=== PATIENT | female | born 1980 | race Caucasian/White ===

== ENCOUNTER 2017-12-31 09:13 | Observation (INO) ==
[2017-12-31] MEDS ORDERED: 0.9 % Sodium Chloride 1,000 ML IVC ONE ×2 (09:20→13:29)
[2017-12-31] MEDS ORDERED: *HR* LORazepam 2 MG/ML VIAL IVP ONE ×2 (09:20→09:23)
[2017-12-31] MEDS ORDERED: *HR* LORazepam 2 MG/ML VIAL ONE (09:50)
[2017-12-31] MEDS ORDERED: levETIRAcetam 1,000 MG in 0.9 % Sodium Chloride 100 ML IVPB ONE (09:54)
--- NOTE | 2017-12-31 10:22 | Emergency Department Note ---
Disposition Clinical Impression: Tonic clonic seizures Disposition: Admitted As Inpatient Condition: Fair Time of Disposition: 14:26 Seizure HPI - General Chief Complaint: ED Seizure Stated Complaint: poss seizure Time Seen by Provider: 12/31/17 09:20 Source: patient, EMS Limitations: no limitations Nursing Notes Reviewed: Yes Vital Signs Reviewed: Yes - History of Present Illness HPI Narrative: 29-year-old diabetic female presents after possible seizure, patient states that she was shaking this morning she was smoking a cigarette, then she started to shake uncontrollably, her told the paramedics that she was unresponsive for a minute or so no history of seizure. She did have urinary incontinence, did not bite her tongue. Per the paramedics she was shaking for about a minute, and she was little bit postictal and confused after the event. She denies headache or injury. Denies chest pain or abdominal pain. Pt Subjective Complaint: seizure Description of Episode: loss of consciousness, tonic-clonic movement Witnessed: yes - by bystander Associated trauma secondary to event: No Seizure History: none Place: work Possible Precipitating Event: none Associated symptoms: Denies: denies other symptoms, chest pain, confusion, cough , diaphoresis Pain Severity: mild, moderate Pain Scale: 2 Treatments prior to arrival: none - Related Data Home Medications Medication Instructions Recorded Confirmed Quetiapine Fumarate [SEROquel] 600 mg PO HS 04/28/16 12/31/17 TraZODone [TraZODone] 50 mg PO HS 04/28/16 12/31/17 BuPROPion XL (24 HR) [Wellbutrin 150 mg PO DAILY 12/31/17 12/31/17 XL] Ferrous Sulfate [Iron] 325 mg PO DAILY 12/31/17 12/31/17 Gabapentin [Neurontin] 600 mg PO QID 12/31/17 12/31/17 Metformin HCl [Glucophage] 1,000 mg PO BID 12/31/17 12/31/17 Sertraline [Zoloft] 200 mg PO DAILY 12/31/17 12/31/17 Allergies Allergy/AdvReac Type Severity Reaction Status Date / Time Erythromycin Base Allergy Rash Verified 03/19/17 14:16 All systems ED: reviewed and negative except as stated. Review of Systems: As Per HPI Constitutional: Denies: fever, chills Eyes: Denies: eye pain ENT ED: Denies: ear pain Cardiovascular: Denies: chest pain, palpitations Respiratory: Denies: cough, dyspnea Gastrointestinal: Denies: abdominal pain Genitourinary: Denies: urgency Musculoskeletal: Denies: back pain Integumentary: Denies: rash Neurological: Reports: as per HPI, other (seizure). Denies: headache, numbness Psychiatric: Denies: anxiety Past Medical History - Past Medical History Attestation: Yes The following information was validated with the patient. Source: patient Medical history: Reports: diabetes, hepatitis Surgical history: Reports: non-contributory Psychiatric history: Reports: anxiety, bipolar, depression ICU STAFF NURSE history: Reports: non-contributory - Social History Smoking Status: Current every day smoker Smokeless Tobacco Status: No Alcohol use: Reports: none Drug use: Reports: none, IV Drug Use Physical Exam Constitutional: Obese middle-aged female with some confusion Eyes: PERRLA, sclera anicteric ENT & Mouth: MMM Neck: normal inspection, neck is supple Resp: CTA bilaterally, no resp distress CV: RRR, no m/g/r GI: normal inspection, soft, no guarding or rigidity Neuro: A&O2, CNII-XII grossly intact, DIAMOND Skin: on limited exam, skin intact with no rashes or lesions - General Limitations: no limitations General appearance: alert, anxious, lethargic Course Course Narrative: 37-year-old female with possible seizure tibia home, as she is being worked up, should of tonic-clonic activity that lasted for about 20-30 seconds, she is clenching, she had urinary incontinence, she was clenching, afterwards postictal confusion, we gave her 2 mg of IM Ativan, she is now more lucid, CBC BMP, CT head before LP, fluid rehydration, basic lab work including urinalysis and infectious workup lactate and blood cultures. Patient was loaded with Keppra 1 g, plan is for neurologic consult after lab work and imaging, and LP. - Reevaluation(s) Reevaluation #1: The patient episode of witnessed seizure activity, she was loaded with Keppra, after talking with the neurologist decision was made to perform LP spinal tap, and antibiotics were ordered prior to tap, patient started on ceftriaxone and acyclovir although this was not started until after CSF was obtained, although the first fluid had some blood in it, is mostly clear, she tolerated this well without any neurologic deficits or palpitations. CT scan was negative for white blood cell count was not elevated, her temperature remained normal, she had no evidence of bacteria and negative Gram stain on CSF, unclear etiology for seizures although she denies she is positive for methamphetamine abuse this may be the cause, and admitted to the hospitalist Dr. Saldaña. Time: 14:25 - Consultations Consultation #1: Consultation Dr. Eduardo plan is for MRI and EEG inpatient Vital Signs Temperature 99.5 F 12/31/17 09:15 Pulse Rate 119 12/31/17 09:15 Respiratory Rate 16 12/31/17 09:15 Blood Pressure 148/87 12/31/17 09:15 O2 Sat by Pulse Oximetry 97 12/31/17 09:15 Temperature 98.3 F 12/31/17 11:34 Pulse Rate 79 12/31/17 13:58 Respiratory Rate 16 12/31/17 14:57 Blood Pressure 107/64 12/31/17 14:57 O2 Sat by Pulse Oximetry 99 12/31/17 13:58 Oxygen Delivery Oxygen Delivery Nasal Cannula Procedures - Lumbar Puncture Consent Obtained: verbal consent, written consent Time Out Performed: Yes Patient Position: right lateral decubitus Skin Prep: Povidone-Iodine 1% Local Anesthetic: lidocaine 1% Amount of anesthesia used (mL): 5 Spinal Needle Gauge: 20G Interspace Used: L3-L4 Fluid Initially Obtained: clear, bloody Complications: none, traumatic tap Seizure - Differential Diagnosis Likely: febrile convulsion, focal seizure - Medical Records Medical records reviewed: Yes I reviewed the patient's medical records. - Lab Data Lab results reviewed: Yes I reviewed the patient's lab results. Result diagrams: 12/31/17 10:58 12/31/17 10:58 Lab Results 12/31/17 12/31/17 12/31/17 Range/Units 09:29 10:27 10:27 WBC (4.3-11.1) K/mcL RBC (3.82-4.97) M/mcL Hgb (11.5-15.4) g/dL Hct (35.3-44.9) % MCV (83.0-100.0) fL MCH (28.0-33.3) pg MCHC (31.6-35.5) g/dL RDW (11.5-14.5) % Plt Count (140-400) K/mcL MPV (9.4-12.4) fL Immature Gran % (0-4) % Seg Neutrophils % % Lymphocytes % % Monocytes % % Eosinophils % % Basophils % % Neutrophils # (1.6-8.9) K/mcL Lymphocytes # (0.6-4.6) K/mcL Monocytes # (0.0-1.3) K/mcL Eosinophils # (0.0-0.6) K/mcL Basophils # (0.0-0.2) K/mcL Sodium (136-145) mEq/L Potassium (3.5-5.1) mEq/L Chloride (98-107) mEq/L Carbon Dioxide (23-29) mEq/L BUN (6-20) mg/dL Creatinine (0.60-1.20) mg/dL Est GFR ( Amer) (> 60) Est GFR (Non-Af Amer) (> 60) BUN/Creatinine Ratio (6-26) Glucose (70-105) mg/dL POC Glucose 255 H (58-89) Calculated Osmolality (280-300) Lactic Acid (0.5-2.2) mmol/L Calcium (8.6-10.3) mg/dL Phosphorus (2.7-4.5) mg/dL Magnesium (1.6-2.6) mg/dL Total Bilirubin (0.3-1.0) mg/dL AST (13-39) Units/L ALT (7-52) Units/L Alkaline Phosphatase (34-104) Units/L Ammonia (16-53) mcmol/L Serum Total Protein (6.4-8.9) g/dL Albumin (3.5-5.7) g/dL Globulin (2.4-3.5) g/dL Albumin/Globulin Ratio (1.1-2.2) Urine Color Yellow (Yellow) Urine Clarity Clear (Clear) Urine pH 5.0 (5.0-8.0) pH Units Ur Specific [place] 1.021 (1.010-1.025) Urine Protein 30 H (Neg-Trace) mg/dL Urine Glucose (UA) Normal (Normal) mg/dL Urine Ketones Trace H (Negative) mg/dL Urine Blood Negative (Negative) Urine Nitrite Negative (Negative) Urine Bilirubin Negative (Negative) Urine Urobilinogen Normal (Normal) mg/dL Ur Leukocyte Esterase Negative (Negative) Urine Microscopic RBC 0-3 (0-3) per hpf Urine Microscopic WBC 0-3 (0-3) per hpf Ur Squamous Epith Cells Many H (None-Few) per lpf Urine Bacteria None Seen (None-Few) per hpf Hyaline Casts None Seen (None-Few) per lpf CSF Volume mL CSF Appearance (Clear) CSF Color (Colorless) CSF RBC (0.000 - 0.002) M/mcL CSF Tot Nucleated Cells (0-5) TNC/mcL CSF Seg Neutrophils CSF Band Neutrophils % CSF Lymphocytes % CSF Monocytes % CSF Eosinophils % CSF Basophils % CSF Other Cells % CSF Glucose (40-70) mg/dL CSF Xanth Comm (Not Observe) CSF Total Protein (15-45) mg/dL Urine Opiates Screen Negative (Dcryso=675) ng/mL Ur Barbiturates Screen Negative (Dacioc=799) ng/mL Ur Phencyclidine Scrn Negative (Cutoff=25) ng/mL Ur Amphetamines Screen Positive H (Tjvvqp=4457) ng/mL U Benzodiazepines Scrn Negative (Hpljha=508) ng/mL Urine Cocaine Screen Negative (Cutoff= 300) ng/mL U Marijuana (THC) Screen Negative (Cutoff = 50) ng/mL 12/31/17 12/31/17 12/31/17 Range/Units 10:58 10:58 10:58 WBC 7.2 (4.3-11.1) K/mcL RBC 4.62 (3.82-4.97) M/mcL Hgb 12.7 (11.5-15.4) g/dL Hct 39.1 (35.3-44.9) % MCV 84.6 (83.0-100.0) fL MCH 27.5 L (28.0-33.3) pg MCHC 32.5 (31.6-35.5) g/dL RDW 19.4 H (11.5-14.5) % Plt Count 279 (140-400) K/mcL MPV 9.1 L (9.4-12.4) fL Immature Gran % 0.4 (0-4) % Seg Neutrophils % 81.0 % Lymphocytes % 12.3 % Monocytes % 5.2 % Eosinophils % 0.7 % Basophils % 0.4 % Neutrophils # 5.8 (1.6-8.9) K/mcL Lymphocytes # 0.9 (0.6-4.6) K/mcL Monocytes # 0.4 (0.0-1.3) K/mcL Eosinophils # 0.1 (0.0-0.6) K/mcL Basophils # 0.0 (0.0-0.2) K/mcL Sodium 134 L (136-145) mEq/L Potassium 4.3 (3.5-5.1) mEq/L Chloride 107 (98-107) mEq/L Carbon Dioxide 17 L (23-29) mEq/L BUN 14 (6-20) mg/dL Creatinine 0.85 (0.60-1.20) mg/dL Est GFR ( Amer) > 60 (> 60) Est GFR (Non-Af Amer) > 60 (> 60) BUN/Creatinine Ratio 16 (6-26) Glucose 257 H (70-105) mg/dL POC Glucose (58-89) Calculated Osmolality 287 (280-300) Lactic Acid 5.8 H* (0.5-2.2) mmol/L Calcium 8.4 L (8.6-10.3) mg/dL Phosphorus 1.3 L (2.7-4.5) mg/dL Magnesium 1.9 (1.6-2.6) mg/dL Total Bilirubin 0.2 L (0.3-1.0) mg/dL AST 22 (13-39) Units/L ALT 35 (7-52) Units/L Alkaline Phosphatase 127 H (34-104) Units/L Ammonia (16-53) mcmol/L Serum Total Protein 6.8 (6.4-8.9) g/dL Albumin 4.2 (3.5-5.7) g/dL Globulin 2.6 (2.4-3.5) g/dL Albumin/Globulin Ratio 1.6 (1.1-2.2) Urine Color (Yellow) Urine Clarity (Clear) Urine pH (5.0-8.0) pH Units Ur Specific [place] (1.010-1.025) Urine Protein (Neg-Trace) mg/dL Urine Glucose (UA) (Normal) mg/dL Urine Ketones (Negative) mg/dL Urine Blood (Negative) Urine Nitrite (Negative) Urine Bilirubin (Negative) Urine Urobilinogen (Normal) mg/dL Ur Leukocyte Esterase (Negative) Urine Microscopic RBC (0-3) per hpf Urine Microscopic WBC (0-3) per hpf Ur Squamous Epith Cells (None-Few) per lpf Urine Bacteria (None-Few) per hpf Hyaline Casts (None-Few) per lpf CSF Volume mL CSF Appearance (Clear) CSF Color (Colorless) CSF RBC (0.000 - 0.002) M/mcL CSF Tot Nucleated Cells (0-5) TNC/mcL CSF Seg Neutrophils CSF Band Neutrophils % CSF Lymphocytes % CSF Monocytes % CSF Eosinophils % CSF Basophils % CSF Other Cells % CSF Glucose (40-70) mg/dL CSF Xanth Comm (Not Observe) CSF Total Protein (15-45) mg/dL Urine Opiates Screen (Dtztdd=261) ng/mL Ur Barbiturates Screen (Qcfjrt=043) ng/mL Ur Phencyclidine Scrn (Cutoff=25) ng/mL Ur Amphetamines Screen (Ktcgmi=9547) ng/mL U Benzodiazepines Scrn (Xdhhvy=901) ng/mL Urine Cocaine Screen (Cutoff= 300) ng/mL U Marijuana (THC) Screen (Cutoff = 50) ng/mL 12/31/17 12/31/17 Range/Units 10:58 12:40 WBC (4.3-11.1) K/mcL RBC (3.82-4.97) M/mcL Hgb (11.5-15.4) g/dL Hct (35.3-44.9) % MCV (83.0-100.0) fL MCH (28.0-33.3) pg MCHC (31.6-35.5) g/dL RDW (11.5-14.5) % Plt Count (140-400) K/mcL MPV (9.4-12.4) fL Immature Gran % (0-4) % Seg Neutrophils % % Lymphocytes % % Monocytes % % Eosinophils % % Basophils % % Neutrophils # (1.6-8.9) K/mcL Lymphocytes # (0.6-4.6) K/mcL Monocytes # (0.0-1.3) K/mcL Eosinophils # (0.0-0.6) K/mcL Basophils # (0.0-0.2) K/mcL Sodium (136-145) mEq/L Potassium (3.5-5.1) mEq/L Chloride (98-107) mEq/L Carbon Dioxide (23-29) mEq/L BUN (6-20) mg/dL Creatinine (0.60-1.20) mg/dL Est GFR ( Amer) (> 60) Est GFR (Non-Af Amer) (> 60) BUN/Creatinine Ratio (6-26) Glucose (70-105) mg/dL POC Glucose (58-89) Calculated Osmolality (280-300) Lactic Acid (0.5-2.2) mmol/L Calcium (8.6-10.3) mg/dL Phosphorus (2.7-4.5) mg/dL Magnesium (1.6-2.6) mg/dL Total Bilirubin (0.3-1.0) mg/dL AST (13-39) Units/L ALT (7-52) Units/L Alkaline Phosphatase (34-104) Units/L Ammonia 33 (16-53) mcmol/L Serum Total Protein (6.4-8.9) g/dL Albumin (3.5-5.7) g/dL Globulin (2.4-3.5) g/dL Albumin/Globulin Ratio (1.1-2.2) Urine Color (Yellow) Urine Clarity (Clear) Urine pH (5.0-8.0) pH Units Ur Specific [place] (1.010-1.025) Urine Protein (Neg-Trace) mg/dL Urine Glucose (UA) (Normal) mg/dL Urine Ketones (Negative) mg/dL Urine Blood (Negative) Urine Nitrite (Negative) Urine Bilirubin (Negative) Urine Urobilinogen (Normal) mg/dL Ur Leukocyte Esterase (Negative) Urine Microscopic RBC (0-3) per hpf Urine Microscopic WBC (0-3) per hpf Ur Squamous Epith Cells (None-Few) per lpf Urine Bacteria (None-Few) per hpf Hyaline Casts (None-Few) per lpf CSF Volume 4.0 mL CSF Appearance Clear (Clear) CSF Color Colorless (Colorless) CSF RBC < 0.002 (0.000 - 0.002) M/mcL CSF Tot Nucleated Cells < 3 (0-5) TNC/mcL CSF Seg Neutrophils TNP CSF Band Neutrophils % TNP CSF Lymphocytes % TNP CSF Monocytes % TNP CSF Eosinophils % TNP CSF Basophils % TNP CSF Other Cells % TNP CSF Glucose 119 H (40-70) mg/dL CSF Xanth Comm Not Observed (Not Observe) CSF Total Protein 58 H (15-45) mg/dL Urine Opiates Screen (Vybaar=528) ng/mL Ur Barbiturates Screen (Zsggll=364) ng/mL Ur Phencyclidine Scrn (Cutoff=25) ng/mL Ur Amphetamines Screen (Mgaxga=2427) ng/mL U Benzodiazepines Scrn (Tizpdg=216) ng/mL Urine Cocaine Screen (Cutoff= 300) ng/mL U Marijuana (THC) Screen (Cutoff = 50) ng/mL - Radiology Data Radiology results reviewed: Yes I reviewed the patient's radiology results. Head CT 12/31/17 09:53 IMPRESSION: 1. No acute intracranial abnormality. D/ / Wayne Owens MD / Wayne Owens MD Interpreting Provider: Wayne Owens MD - EKG Data EKG attestation: Yes I reviewed and interpreted this EKG. EKG shows normal: sinus rhythm Rate: tachycardia (1 13 bpm OK 172 QRS 92 QTC [address] segment elevations or depressions, sinus tachycardia.) Attestation Statement - Attestation Attestation: I, Jered Walters DO, examined this patient [id number] and my medical decision-making was reviewed with Dr. Michael Jones, Resident Physician. I agree with the documented findings, disposition and treatment plan as described except to the extent set forth below. Please see my progress notes for details. Patient seen and examined in conjunction with resident physician. 37-year-old female presents via EMS for seizure-like activity. Patient on presentation did not have any known history secondary to postictal presentation. Patient presented here with stable vital signs Accu-Chek was stable on transfer by EMS. No family was with her initially. Patient is concerning for unprovoked unknown seizure. Family did show a slightly related to the treatment course and said that she had a seizure about 2 years ago when it was withdrawal related issues. Patient has a history of hepatitis C,. And drugs of abuse history. Patient had detailed screening evaluation completed here today with CT of the head labs including urine drug screen and workup for altered mentation. There was concern for possible encephalopathic presentation secondary to the new onset seizure. Initially as ordered the mass and Rocephin and acyclovir for symptomatic control secondary to possibility of infectious etiology. Patient does not have any meningeal symptoms her head is atraumatic she has no signs of oral lesion or cuts to her mouth after the seizure activity. Lungs are clear heart is regular abdomen soft. She did lose control of her bladder during the seizure activity. At this point the lumbar puncture will be held until CT imaging is resulted in consultation is had with the on- call neurologist. He does not Will be given. A single episode of seizure-like activity reported o'clock chronic presentation did occur here in the emergency room. Disposition pending the detailed workup and treatment course. Antibiotics to be provided in conjunction with lumbar puncture if needed. See detailed documentation of the physical exam, medical intervention, medical decision-making and disposition and the resident physician's note. 1100 Patient is still postictal at this time but is getting better. CT that is unremarkable. Labs are negative for acute infectious etiology but she is positive for amphetamines in her urine. Symptoms appear to be most consistent with alcohol-related issue. Patient does not have a fever. White count as well as workup had been unremarkable. Antibiotics will be held at this time neurology consult to be placed at this point patient will most likely need admission for further workup and evaluation. Lumbar puncture was completed without any complication. CSF was reviewed and evaluated does not show any acute signs of infection. Gram stain is negative. Patient will be admitted for definitive management.
[2017-12-31 10:42] LABS: Bilirubin,Urine Negative (Negative); Blood,Urine Negative (Negative); Clarity,Urine Clear (Clear); Color,Urine Yellow (Yellow); Glucose,Urine (UA) Normal (Normal); Ketones,Urine Trace mg/dL (Negative); Leukocyte Esterase,Urine Negative (Negative); Nitrite,Urine Negative (Negative); Protein,Urine 30 mg/dL (Neg-Trace); Specific Gravity,Urine 1.021 (1.010-1.025); Urobilinogen,Urine Normal (Normal)
[2017-12-31 10:43] LABS: Bacteria,Urine None Seen per hpf (None-Few); Hyaline Casts,Urine None Seen per lpf (None-Few); RBC,Urine 0-3 per hpf (0-3); Squamous Epithelial Cell,Urine Many per lpf (None-Few); WBC,Urine 0-3 per hpf (0-3)
[2017-12-31 10:50] LABS: Amphetamine Screen,Urine Positive ng/mL (Cutoff=1000); Barbiturate Screen,Urine Negative ng/mL (Cutoff=200); Benzodiazepines Screen,Urine Negative ng/mL (Cutoff=200); Cannabinoid Screen,Urine Negative ng/mL (Cutoff = 50); Cocaine Screen,Urine Negative ng/mL (Cutoff= 300); Opiate Screen,Urine Negative ng/mL (Cutoff=300); Phencyclidine Screen,Urine Negative ng/mL (Cutoff=25)
[2017-12-31] MEDS ORDERED: Vancomycin 1,000 MG in D5% in Water 250 ML IVPB ONE (10:52)
[2017-12-31] MEDS ORDERED: Acyclovir 500 MG in D5% in Water 250 ML IVPB ONE (10:53)
[2017-12-31 11:08] LABS: Basophils % 0.4 %; Eosinophils # 0.1 K/mcL (0.0-0.6); Eosinophils % 0.7 %; Hematocrit 39.1 % (35.3-44.9); Hemoglobin 12.7 g/dL (11.5-15.4); Immature Granulocytes % 0.4 % (0-4); Lymphocytes # 0.9 K/mcL (0.6-4.6); Lymphocytes % 12.3 %; Mean Corpuscular HGB Conc 32.5 g/dL (31.6-35.5); Mean Corpuscular Hemoglobin 27.5 pg (28.0-33.3); Mean Corpuscular Volume 84.6 fL (83.0-100.0); Mean Platelet Volume 9.1 fL (9.4-12.4); Monocytes # 0.4 K/mcL (0.0-1.3); Monocytes % 5.2 %; Neutrophils # 5.8 K/mcL (1.6-8.9); Platelet Count 279 K/mcL (140-400); Red Blood Count 4.62 M/mcL (3.82-4.97); Red Cell Distribution Width 19.4 % (11.5-14.5)
[2017-12-31 11:35] LABS: Alanine Aminotransferase 35 Units/L (7-52); Albumin 4.2 g/dL (3.5-5.7); Albumin/Globulin Ratio 1.6 (1.1-2.2); Alkaline Phosphatase 127 Units/L (34-104); Aspartate Amino Transferase 22 Units/L (13-39); BUN/Creatinine Ratio 16 (6-26); Bilirubin,Total 0.2 mg/dL (0.3-1.0); Blood Urea Nitrogen 14 mg/dL (6-20); Calcium 8.4 mg/dL (8.6-10.3); Carbon Dioxide 17 mEq/L (23-29); Chloride 107 mEq/L (98-107); Globulin 2.6 g/dL (2.4-3.5); Glucose 257 mg/dL (70-105); Magnesium 1.9 mg/dL (1.6-2.6); Osmolality,Calculated 287 (280-300); Phosphorous 1.3 mg/dL (2.7-4.5); Potassium 4.3 mEq/L (3.5-5.1); Sodium 134 mEq/L (136-145); Total Protein 6.8 g/dL (6.4-8.9); eGFR For African Americans > 60 (> 60); eGFR For Non-African Americans > 60 (> 60)
[2017-12-31] MEDS ORDERED: Ketorolac 15 MG/ML VIAL IVP ONE ×2 (12:27→14:04)
[2017-12-31 13:04] LABS: Red Blood Cell,CSF < 0.002 M/mcL
[2017-12-31 13:05] LABS: Appearance,CSF Clear (Clear)
[2017-12-31 13:21] LABS: Glucose,CSF 119 mg/dL (40-70); Total Protein,CSF 58 mg/dL (15-45)
[2017-12-31] MEDS ORDERED: cefTRIAXone 2,000 MG in Water for inj. (sterile) 20 ML IVP ONE (14:05)
--- NOTE | 2017-12-31 15:22 | Neurology - Consult Note ---
Date of Encounter: 12/31/17 Time of Encounter: 15:18 Assessment and Plan (1) Tonic clonic seizures Current Visit: Yes Status: Acute Witnessed GTC x2, with no known history of seizure disorder, with positive amphetamine in UDS which may be the provoking factor. Will at this time recommend anti epileptic therapy in the form Keppra 500mg bid. Will need MRI of brain without contrast. EEG can be done as an outpatient since we are going to treat her with keppra. CSF showed no signs of [employer] infection with normal WBC. Elevated protein is a nonspecific finding which may indicate presence of encephalopathy. Start keppra 500mg bid. patient is to follow up with Dr. Dupont within 2-3 weeks after discharge. Please continue medical and supportive care History of Present Illness Chief complaint: seizure HPI: Ms. Canseco is a 37 year old female with PMH significant for hepatitis C, anxiety , DM, HTNk migraine, history of opiate dependence who developed seizure like activity with urinary incontinence. No known history of seizures but according to medical records, she had been ordered an EEG during [address] Jamar Dupont however, no follow up was with Dr. Dupont was made. She denies having seizure but admits that her significant other saw some episodes at that time. She does not remember she saw Dr. Dupont in 2016. She has witnessed seizures and in ER she had another witnessed seizure with urinary incontinence but no tongue biting. She was loaded with keppra [id number]. She also had a mild fever so LP was performed. CSF showed WBC < 3, and slightly elevated protein level of 56, which is nonspecific. She has had MRI of brain in the past. Her UDS showed positive for amphetamine. she states that she messed up with her medications and she took few Adderal and also suboxone. Past Med Surg Social Fam HX - Past Medical History Medical history: diabetes, hepatitis Psychiatric history: anxiety, bipolar, depression - Past Surgical History Surgical History: non-contributory - Social History Smoking Status: Current every day smoker Smokeless Tobacco Status: No Alcohol use: none Drug use: none, IV Drug Use Medications and Allergies Quetiapine Fumarate [SEROquel] 600 mg PO HS 04/28/16 [History] TraZODone [TraZODone] 50 mg PO HS 04/28/16 [History] BuPROPion XL (24 HR) [Wellbutrin XL] 150 mg PO DAILY 12/31/17 [History] Ferrous Sulfate [Iron] 325 mg PO DAILY 12/31/17 [History] Gabapentin [Neurontin] 600 mg PO QID 12/31/17 [History] Metformin HCl [Glucophage] 1,000 mg PO BID 12/31/17 [History] Sertraline [Zoloft] 200 mg PO DAILY 12/31/17 [History] 3 Allergy/AdvReac Type Severity Reaction Status Date / Time Erythromycin Base Allergy Rash Verified 03/19/17 14:16 All Systems: A 10-system review of systems was performed and is negative for pertinent findings except as documented above in the HPI. Physical Examination - Vital Signs Vital Signs: Initial Vital Signs Temp Pulse Resp BP Pulse Ox 99.5 F 119 16 148/87 97 12/31/17 09:15 12/31/17 09:15 12/31/17 09:15 12/31/17 09:15 12/31/17 09:15 - Constitutional General appearance: comfortable - Neurologic Detailed motor examination: grossly full strength in all extremities, full strength in all major muscle groups Motor examination - right side: 5/5: deltoids, biceps, triceps, wrist flexion, wrist extension, tonal regulator, hip flexors, tibialis Anterior, quadriceps, toe extension (EHL), plantarflexion Motor examination - left side: 5/5: deltoids, biceps, triceps, wrist flexion, wrist extension, hip flexors, tonal regulator, quadriceps, tibialis Anterior, toe extension (EHL), plantarflexion Detailed sensory examination: other (patient is drowsy and assessment difficult. no gross deficits noted) Reflexes: Biceps: 2+, Triceps: 2+, Brachioradialis: 2+, Patella: 2+, Achilles: 2 + Mental Status Examination: drowsy, opens eyes to voice, opens eyes to noxious stimulation, follows simple commands Cranial nerve examination: PERRL, EOMI, visual rashid intact, corneal reflexes brisk symmetrically, sensory to face intact, mastication intact, no facial asymmetry is present, no dysarthria, hearing is intact symmetrically, soft palate elevates bilaterally upon phonation, gag reflex intact, flexes SCM and trapezius muscles symmetrically with full power, tongue protrudes midline, no atrophy or facial fasiculations present Cerebellar examination: no dysmetria, performs finger to nose and heel to dang symmetrically without ataxia, no gait ataxia, no truncal ataxia, no difficulty with rapid alternating movements Results - Laboratory Findings CBC and BMP: 12/31/17 10:58 12/31/17 10:58 Abnormal lab findings: Abnormal lab results MCH 27.5 pg (28.0-33.3) L 12/31/17 10:58 RDW 19.4 % (11.5-14.5) H 12/31/17 10:58 MPV 9.1 fL (9.4-12.4) L 12/31/17 10:58 Sodium 134 mEq/L (136-145) L 12/31/17 10:58 Carbon Dioxide 17 mEq/L (23-29) L 12/31/17 10:58 Glucose 257 mg/dL (70-105) H 12/31/17 10:58 POC Glucose 255 (58-89) H 12/31/17 09:29 Lactic Acid 5.8 mmol/L (0.5-2.2) H* 12/31/17 10:58 Calcium 8.4 mg/dL (8.6-10.3) L 12/31/17 10:58 Phosphorus 1.3 mg/dL (2.7-4.5) L 12/31/17 10:58 Total Bilirubin 0.2 mg/dL (0.3-1.0) L 12/31/17 10:58 Alkaline Phosphatase 127 Units/L (34-104) H 12/31/17 10:58 Urine Protein 30 mg/dL (Neg-Trace) H 12/31/17 10:27 Urine Ketones Trace mg/dL (Negative) H 12/31/17 10:27 Ur Squamous Epith Cells Many per lpf (None-Few) H 12/31/17 10:27 CSF Glucose 119 mg/dL (40-70) H 12/31/17 12:40 CSF Total Protein 58 mg/dL (15-45) H 12/31/17 12:40 Ur Amphetamines Screen Positive ng/mL (Kamdlv=3233) H 12/31/17 10:27 Consult Discharge Plan - Plan Referrals: NONE,PCP [Primary Care Provider] -
[2017-12-31] MEDS: 0.9 % Sodium Chloride 1,000 ML IVC SCH (16:35)
--- NOTE | 2017-12-31 17:54 | Internal Med History&Physical ---
Date of Encounter: 12/31/17 Time of Encounter: 14:00 Assessment and Plan (1) Tonic clonic seizures Current visit: Yes Status: Acute -Suspect secondary to positive amphetamine in UDS which may have been the provoking factor. -CSF showed no signs of [employer] infection with normal WBC; will discontinue antibiotics. -Neurology consult with recommendations to start Keppra 500 mg twice daily in addition to MRI of the brain without contrast. -Further recommendations for patient to be follow-up as outpatient for an EEG with Dr. Dupont 2-3 weeks. (2) Drug abuse and dependence Current visit: Yes Status: Acute -Urine tox positive for methamphetamine as above -She does not want family or friends to be informed of her drug dependence/abuse (3) Mood disorder Current visit: Yes Status: Acute -Stable; continue home medications (4) Diabetes Current visit: Yes Status: Acute -Continue home medications Qualifiers: Diabetes mellitus type: type 2 Qualified Code(s): E11.9 - Type 2 diabetes mellitus without complications Internal Medicine - H&P: HPI Chief complaint: Seizures Admitted From: Home Plans for Post Hospital Care: Home History of present illness: Patient is a 37-year-old female with past medical history significant for mood disorder, diabetes and obesity who presents to the ER on 12/31/17 by EMS due to seizures. Patient with no family present and does not recall events but was told that she had a seizure by her boyfriend who lives with her and EMS was called for patient to be brought into the ER. In the ER, patient had a witnessed seizure per ER physician. CT of the head was negative but urine tox positive for methamphetamines. Patient will be admitted to the medical surgical floor for seizure management/ workup. Past Med Surg Social Fam HX - Past Medical History Medical history: diabetes, hepatitis Psychiatric history: anxiety, bipolar, depression - Past Surgical History Surgical History: non-contributory - Social History Smoking Status: Current every day smoker Smokeless Tobacco Status: No Alcohol use: none Drug use: none, IV Drug Use - Family History Maternal Grandfather Hx Family Endocrine Disorder: Yes (DM) Internal Medicine - H&P: Meds Quetiapine Fumarate [SEROquel] 600 mg PO HS 04/28/16 [History] TraZODone [TraZODone] 50 mg PO HS 04/28/16 [History] BuPROPion XL (24 HR) [Wellbutrin XL] 150 mg PO DAILY 12/31/17 [History] Ferrous Sulfate [Iron] 325 mg PO DAILY 12/31/17 [History] Gabapentin [Neurontin] 600 mg PO QID 12/31/17 [History] Metformin HCl [Glucophage] 1,000 mg PO BID 12/31/17 [History] Sertraline [Zoloft] 200 mg PO DAILY 12/31/17 [History] 3 Allergy/AdvReac Type Severity Reaction Status Date / Time Erythromycin Base Allergy Rash Verified 03/19/17 14:16 All Systems PM: A 10-system review of systems was performed and is negative for pertinent findings except as documented above in the HPI. - Constitutional Vitals: Temp Pulse Resp BP Pulse Ox 98.2 F 77 16 100/52 96 12/31/17 15:46 12/31/17 15:46 12/31/17 15:46 12/31/17 15:46 12/31/17 15:46 General appearance: Present: A&O X 3, no acute distress, answers questions appropriately - Head Head exam: Present: normocephalic - Eye Eye exam: Present: normal appearance - Respiratory Respiratory exam: Present: CTAB. Absent: accessory muscle use, rales, rhonchi, wheezes - Cardiovascular Cardiovascular exam: Present: RRR, +S1, +S2. Absent: diastolic murmur, gallop, rubs, systolic murmur - GI/Abdominal GI/Abdominal exam: Present: normal bowel sounds, soft, no peritoneal signs. Absent: distended, tenderness - Extremities Exam Extremities exam: Absent: pedal edema - Neurological Exam Neurological exam: Present: CN II-XII intact, oriented X3, no focal deficits. Absent: pronater drift, facial droop, speech deficit - Psychiatric Psychiatric exam: Present: normal mood - Skin Skin exam: Present: normal color Internal Med - H&P Results - Labs CBC & Chem 7: 12/31/17 10:58 12/31/17 10:58
[2017-12-31] MEDS ORDERED: Naloxone 0.4 MG/ML INJ IVP PRN (18:00)
--- NOTE | 2017-12-31 18:10 | Electrocardiograph Report ---
[place] [id number] Test Date: 2017-12-31 Pat Name: Mary Jo Canseco Department: 104 Room: [facility] Gender: F Wood Gouger: NESSA : 1980 Requested By: Michael Jones Order Number: [id number] Reading MD: Tay Leahy Measurements Intervals [place] Rate: 113 P: 33 SC: 172 QRS: 1 QRSD: 92 T: 25 QT: 342 QTc: 409 Interpretive Statements SINUS TACHYCARDIA LOW QRS VOLTAGE IN PRECORDIAL LEADS NONSPECIFIC ST & T-WAVE ABNORMALITY ABNORMAL RHYTHM ECG Electronically Signed On 12-31-2017 18:08:40 EST by Tay Leahy
[2017-12-31] MEDS ORDERED: Acetaminophen 325 MG TABLET PO PRN (20:46)
[2017-12-31] MEDS: Gabapentin 300 MG CAPSULE PO SCH (21:24)
[2017-12-31] MEDS: *HR* Metformin 500 MG TABLET PO SCH (21:24)
[2017-12-31] MEDS ORDERED: traZODone 50 MG TABLET PO SCH (22:02)
[2018-01-01 04:11] LABS: Basophils % 0.6 %; Eosinophils # 0.1 K/mcL (0.0-0.6); Eosinophils % 1.7 %; Hematocrit 34.8 % (35.3-44.9); Hemoglobin 11.3 g/dL (11.5-15.4); Immature Granulocytes % 0.1 % (0-4); Lymphocytes # 2.1 K/mcL (0.6-4.6); Lymphocytes % 28.6 %; Mean Corpuscular HGB Conc 32.5 g/dL (31.6-35.5); Mean Corpuscular Hemoglobin 27.3 pg (28.0-33.3); Mean Corpuscular Volume 84.1 fL (83.0-100.0); Mean Platelet Volume 9.6 fL (9.4-12.4); Monocytes # 0.5 K/mcL (0.0-1.3); Monocytes % 6.8 %; Neutrophils # 4.5 K/mcL (1.6-8.9); Platelet Count 254 K/mcL (140-400); Red Blood Count 4.14 M/mcL (3.82-4.97); Red Cell Distribution Width 19.3 % (11.5-14.5); Segmented Neutrophils % 62.2 %
[2018-01-01] MEDS: 0.9 % Sodium Chloride 1,000 ML IVC SCH (04:20)
[2018-01-01] MEDS ORDERED: Ibuprofen 800 MG TABLET PO ONE (04:24)
[2018-01-01 04:42] LABS: BUN/Creatinine Ratio 16 (6-26); Blood Urea Nitrogen 9 mg/dL (6-20); Calcium 8.1 mg/dL (8.6-10.3); Carbon Dioxide 20 mEq/L (23-29); Chloride 117 mEq/L (98-107); Glucose 95 mg/dL (70-105); Osmolality,Calculated 292 (280-300); Potassium 3.8 mEq/L (3.5-5.1); Sodium 142 mEq/L (136-145); eGFR For African Americans > 60 (> 60); eGFR For Non-African Americans > 60 (> 60)
[2018-01-01] MEDS ORDERED: levETIRAcetam 250 MG TABLET PO SCH (06:00)
[2018-01-01] MEDS ORDERED: BuPROPion XL (24 HR) 150 MG TABLET PO SCH (09:00)
[2018-01-01] MEDS: *HR* Metformin 500 MG TABLET PO SCH (09:42)
[2018-01-01] MEDS: Gabapentin 300 MG CAPSULE PO SCH ×2 (09:42→13:21)
[2018-01-01 11:53] VITALS: BP 143/83
--- NOTE | 2018-01-01 12:42 | Discharge Summary ---
Date of Encounter: 01/01/18 Time of Encounter: 12:39 - Discharge Diagnosis (1) Tonic clonic seizures Priority: Primary Status: Acute Comments: Patient had a witnessed generalized tonic-clonic seizure 2 no past history of seizure disorder she was positive for amphetamines on urine drug screen suspect this is the provoking factor. CT of head was negative patient refuses MRI because she does not want to remove her facial piercing. Patient had LP and ER CSF showed no signs of SHOP HAND infection with normal WBCs Patient was seen by neurology she was initiated on Keppra 500 mg twice a day which she is to continue as outpatient She is to follow-up with Dr. Dupont 2-3 weeks after discharge She is to have an EEG as outpatient (2) Diabetes Priority: Secondary Status: Acute Comments: continue with metformin Qualifiers: Diabetes mellitus type: type 2 Diabetes mellitus complication status: without complication Diabetes mellitus alf insulin use: without sergeant of corrections use Qualified Code(s): E11.9 - Type 2 diabetes mellitus without complications (3) Drug abuse and dependence Priority: Secondary Status: Acute Comments: -Urine tox positive for methamphetamine -She does not want family or friends to be informed of her drug dependence/abuse (4) Mood disorder Priority: Secondary Status: Acute Comments: continue with home medications - Discharge Medications Prescriptions: LevETIRAcetam [Keppra] 500 mg PO BID #60 tablet Home Medications: Quetiapine Fumarate [Seroquel] 600 mg PO HS 04/28/16 [History] TraZODone 50 mg PO HS 04/28/16 [History] BuPROPion XL (24 HR) [Wellbutrin Xl] 150 mg PO DAILY 12/31/17 [History] Ferrous Sulfate [Iron] 325 mg PO DAILY 12/31/17 [History] Gabapentin [Neurontin] 600 mg PO QID 12/31/17 [History] Metformin HCl [Glucophage] 1,000 mg PO BID 12/31/17 [History] Sertraline [Zoloft] 200 mg PO DAILY 12/31/17 [History] LevETIRAcetam [Keppra] 500 mg PO BID #60 tablet 01/01/18 [Rx] Allergies/Adverse Reactions: 3 Allergy/AdvReac Type Severity Reaction Status Date / Time Erythromycin Base Allergy Rash Verified 03/19/17 14:16 Procedures/tests Complete & Pending: Procedures Performed prior 72 hours Category Date Time Status MR head/brain wo con [MR] Routine MRI 12/31/17 18:02 Ordered Date of admission: 12/31/17 14:05 Primary care physician: PCP NONE Consults: Neurology Discharging clinician: Rosalba Paiz Anticipated date of discharge: 01/01/18 - Patient Status Disposition: Home, Self-Care Condition: Fair - Discharge Instructions Instructions: Diabetes Mellitus Type 2 in Adults (DC) Follow Up With: NONE,PCP [Primary Care Provider] - Jamar Dupont DO [Partnered Physician] - - Diet and Activity Activity: resume usual activities as tolerated Diet: diabetic diet Hospital course: Ms. Canseco is a 37 year old female past medical history significant for mood disorder diabetes obesity HTN migraines hx of opiate dependence she had seizure like activity witnessed by her boyfriend with urinary incontinence. No known hx of seizures She had a second seizure upon arrival to the ED She had a mild fever LP was performed CSF showed WBC <3 slightly elevated protein level urine tox screen positive for methamphetamines, she admits to taking Adderal and suboxone. She was seen by Neurology who started her on Keppra [address] of head negative She refuses MRI dt facial piercing. No seizure activity overnight She is hemodynamically stable She is to follow up with Dr Dupont in 2-3 weeks and obtain EEG as outpatient. Time spent discussing smoking cessation with patient: 3 to 10 minutes - Time Spent with Patient Total time spent providing and/or coordinating discharge services: Less than 30 minutes - Constitutional Vitals: Temp Pulse Resp BP Pulse Ox 98.5 F 75 18 143/83 96 01/01/18 11:52 01/01/18 11:52 01/01/18 11:52 01/01/18 11:52 01/01/18 11:52 General appearance: Present: A&O X 3, no acute distress, answers questions appropriately - Head Head exam: Present: atraumatic, normocephalic - Eye Eye exam: Present: PERRL, conjuntiva pink, sclera anicteric Pupils: Present: PERRL - VTE Reasons for not Prescribing Prophylaxis: Treatment not Indicated - Low risk for VTE
--- NOTE | 2018-01-01 13:25 | Neurology Progress Note ---
Date of Encounter: 01/01/18 Time of Encounter: 12:00 Assessment and Plan (1) Tonic clonic seizures Current Visit: Yes Status: Acute Likely provoked by Adderall use but idiopathic generalized epilepsy or increased susceptibility to GTC can not be excluded. Since she has probably more than one seizures already will keep her Keppra 500gm bid. She is to follow up with Dr. Jamar Dupont and obtain outpatient EEG. Keppra may be discontinued in the future depending on EEG result. Patient okay to be discharged home. Seizure precaution advised. Patient advised to call neurology to schedule follow up appointment Subjective Principal diagnosis: Seizure Interval history: Patient seen and examined. She feels fine and no recurrent seizure reported. She denies any discomforts. Can not do MRI due to facial piercing with metal. Is on keppra 500mg bid and no side effects reported. She is to be discharged today Objective - Constitutional Vitals: Temp Pulse Resp BP Pulse Ox 98.5 F 75 18 143/83 96 01/01/18 11:52 01/01/18 11:52 01/01/18 11:52 01/01/18 11:52 01/01/18 11:52 - Neurological Exam Sensorimotor examination: Present: intact, other (She is drowsy and accurate assessment difficult) Motor Examination: Present: grossly full strength in all extremities, full strength in all major muscle groups Motor examination - right side: 5/5: deltoids, biceps, triceps, wrist flexion, wrist extension, bulking machine operator, hip flexors, tibialis Anterior, quadriceps, toe extension (EHL), plantarflexion Motor examination - left side: 5/5: deltoids, biceps, triceps, wrist flexion, wrist extension, hip flexors, bulking machine operator, quadriceps, tibialis Anterior, toe extension (EHL), plantarflexion Sensation intact: Present: other (patient is drowsy and assessment difficult. no gross deficits noted) Mental Status Examination: Present: drowsy, opens eyes to voice, opens eyes to noxious stimulation, follows simple commands Cranial nerve examination: Present: PERRL, EOMI, visual rashid intact, corneal reflexes brisk symmetrically, sensory to face intact, mastication intact, no facial asymmetry is present, no dysarthria, hearing is intact symmetrically, soft palate elevates bilaterally upon phonation, gag reflex intact, flexes SCM and trapezius muscles symmetrically with full power, tongue protrudes midline, no atrophy or facial fasiculations present Cerebellar examination: Present: no dysmetria, performs finger to nose and heel to dang symmetrically without ataxia, no gait ataxia, no truncal ataxia, no difficulty with rapid alternating movements - VTE Reasons for not Prescribing Prophylaxis: Treatment not Indicated - Low risk for VTE Results - Laboratory Findings CBC and BMP: 01/01/18 03:19 01/01/18 03:19 Abnormal lab findings: Abnormal lab results Hgb 11.3 g/dL (11.5-15.4) L 01/01/18 03:19 Hct 34.8 % (35.3-44.9) L 01/01/18 03:19 MCH 27.3 pg (28.0-33.3) L 01/01/18 03:19 RDW 19.3 % (11.5-14.5) H 01/01/18 03:19 Chloride 117 mEq/L (98-107) H 01/01/18 03:19 Carbon Dioxide 20 mEq/L (23-29) L 01/01/18 03:19 Creatinine 0.56 mg/dL (0.60-1.20) L 01/01/18 03:19 POC Glucose 182 (58-89) H 12/31/17 15:48 Lactic Acid 5.8 mmol/L (0.5-2.2) H* 12/31/17 10:58 Calcium 8.1 mg/dL (8.6-10.3) L 01/01/18 03:19 Phosphorus 2.0 mg/dL (2.7-4.5) L 01/01/18 09:34 Total Bilirubin 0.2 mg/dL (0.3-1.0) L 12/31/17 10:58 Alkaline Phosphatase 127 Units/L (34-104) H 12/31/17 10:58 Urine Protein 30 mg/dL (Neg-Trace) H 12/31/17 10:27 Urine Ketones Trace mg/dL (Negative) H 12/31/17 10:27 Ur Squamous Epith Cells Many per lpf (None-Few) H 12/31/17 10:27 CSF Glucose 119 mg/dL (40-70) H 12/31/17 12:40 CSF Total Protein 58 mg/dL (15-45) H 12/31/17 12:40 Ur Amphetamines Screen Positive ng/mL ([id number]) H 12/31/17 10:27 Consult Discharge Plan - Plan Referrals: NONE,PCP [Primary Care Provider] - Prescriptions: LevETIRAcetam [Keppra] 500 mg PO BID #60 tablet
[2018-01-01] MEDS ORDERED: traZODone 50 MG TABLET PO SCH (21:00)
== END 2018-01-01 14:30 | disposition home or self-care (01) ==
LOC: 3BNU 09:13 → EMEROO 09:13 → 3BNU 15:09
PROVIDERS: ADMIT Hospitalist; ATTEND Registered Nurse

== ENCOUNTER 2021-07-01 13:11 | Inpatient (IN) ==
[2021-07-01] MEDS ORDERED: 0.9 % Sodium Chloride 1,000 ML IVC ONE ×2 (13:30→16:09)
[2021-07-01 14:28] LABS: Bilirubin,Urine Negative (Negative); Blood,Urine Negative (Negative); Clarity,Urine Clear (Clear); Color,Urine Light-Yellow (Yellow); Glucose,Urine (UA) 100 mg/dL (Normal); Hyaline Casts,Urine Few per lpf (None Seen); Ketones,Urine Negative (Negative); Leukocyte Esterase,Urine Negative (Negative); Mucus,Urine Few per lpf (None-Few); Nitrite,Urine Negative (Negative); Protein,Urine 30 mg/dL (Neg-Trace); Specific Gravity,Urine 1.029 (1.010-1.025); Squamous Epithelial Cell,Urine Few per hpf (None-Few); Urobilinogen,Urine Normal (Normal)
[2021-07-01 14:33] LABS: INR 1.2; Prothrombin Time 13.9 Seconds (9.4-12.1)
[2021-07-01 14:35] LABS: Activated Partial Thrombo Time 23.3 Seconds (26.0-36.0)
[2021-07-01 14:48] LABS: Basophils # 0.1 K/mcL (0.0-0.2); Basophils % 0.4 %; Eosinophils # 0.2 K/mcL (0.0-0.6); Eosinophils % 1.3 %; Hematocrit 26.1 % (35.3-44.9); Hemoglobin 8.5 g/dL (11.5-15.4); Immature Granulocytes % 0.5 % (0-4); Immature Platelets 2.6 % (1.1-6.1); Lymphocytes # 2.9 K/mcL (0.6-4.6); Lymphocytes % 22.9 %; Mean Corpuscular HGB Conc 32.6 g/dL (31.6-35.5); Mean Corpuscular Hemoglobin 26.8 pg (28.0-33.3); Mean Corpuscular Volume 82.3 fL (83.0-100.0); Mean Platelet Volume 10.8 fL (9.4-12.4); Monocytes # 0.7 K/mcL (0.0-1.3); Monocytes % 5.7 %; Neutrophils # 8.7 K/mcL (1.6-8.9); Nucleated Red Blood Cells 0.2 /100 WBC (0); Platelet Count 323 K/mcL (140-400); Red Blood Count 3.17 M/mcL (3.82-4.97); Red Cell Distribution Width 15.5 % (11.5-14.5); Segmented Neutrophils % 69.2 %; White Blood Count 12.6 K/mcL (4.3-11.1)
[2021-07-01 14:49] LABS: Alanine Aminotransferase 13 Units/L (7-52); Albumin 3.4 g/dL (3.5-5.7); Albumin/Globulin Ratio 1.4 (1.1-2.2); Alkaline Phosphatase 82 Units/L (34-104); Aspartate Amino Transferase 12 Units/L (13-39); BUN/Creatinine Ratio 32 (6-26); Bilirubin,Indirect 0.2 mg/dL (0.0-1.0); Bilirubin,Total 0.2 mg/dL (0.3-1.0); Blood Urea Nitrogen 34 mg/dL (6-20); Calcium 8.3 mg/dL (8.6-10.3); Carbon Dioxide 15 mEq/L (23-29); Chloride 106 mEq/L (98-107); Globulin 2.4 g/dL (2.4-3.5); Glucose 351 mg/dL (70-105); Osmolality,Calculated 302 (280-300); Potassium 4.1 mEq/L (3.5-5.1); Sodium 135 mEq/L (136-145); Total Protein 5.8 g/dL (6.4-8.9); Troponin I < 0.03 ng/mL (< 0.04); eGFR For African Americans > 60 (> 60); eGFR For Non-African Americans 57 (> 60)
[2021-07-01] MEDS ORDERED: Isovue-370 500 ML BOTTLE IVP ONE (16:07)
[2021-07-01] MEDS ORDERED: cefTRIAXone 1,000 MG in 0.9 % Sodium Chloride Mini Bag 100 ML IVPB ONE (18:05)
[2021-07-02] MEDS ORDERED: Ondansetron 4 MG/2 ML VIAL IVP PRN (02:00)
[2021-07-02] MEDS ORDERED: Acetaminophen 325 MG TABLET PO PRN (02:00)
[2021-07-02] MEDS ORDERED: Naloxone 0.4 MG/ML INJ IVP PRN (02:00)
[2021-07-02] MEDS ORDERED: Melatonin 3 MG TABLET PO PRN (02:00)
[2021-07-02] MEDS ORDERED: D5% in Water 1,000 ML IVC PRN (04:02)
[2021-07-02] MEDS ORDERED: *HR* Dextrose 50 % in Water (Vial) 50 ML VIAL IVP PRN (04:02)
[2021-07-02] MEDS ORDERED: Dextrose Gel 15 GM/37.5 ML TUBE PO PRN ×2 (04:02)
[2021-07-02] MEDS: QUEtiapine Fumarate 300 MG TABLET PO SCH ×3 (04:15→21:44)
[2021-07-02] MEDS ORDERED: 0.9 % Sodium Chloride 1,000 ML IVC ONE (04:15)
[2021-07-02] MEDS ORDERED: Azithromycin 500 MG in D5% in Water 250 ML IVPB SCH (05:00)
[2021-07-02 06:45] LABS: Basophils # 0.1 K/mcL (0.0-0.2); Basophils % 0.5 %; Eosinophils # 0.5 K/mcL (0.0-0.6); Eosinophils % 4.7 %; Hematocrit 21.9 % (35.3-44.9); Hemoglobin 7.2 g/dL (11.5-15.4); Immature Granulocytes % 0.4 % (0-4); Immature Platelets 3.2 % (1.1-6.1); Lymphocytes # 3.8 K/mcL (0.6-4.6); Lymphocytes % 37.8 %; Mean Corpuscular HGB Conc 32.9 g/dL (31.6-35.5); Mean Corpuscular Hemoglobin 27.8 pg (28.0-33.3); Mean Corpuscular Volume 84.6 fL (83.0-100.0); Mean Platelet Volume 10.4 fL (9.4-12.4); Monocytes # 0.7 K/mcL (0.0-1.3); Platelet Count 216 K/mcL (140-400); Red Blood Count 2.59 M/mcL (3.82-4.97); Segmented Neutrophils % 49.6 %
[2021-07-02 07:04] LABS: % Iron Saturation 5 % (15-50); Alanine Aminotransferase 12 Units/L (7-52); Albumin 3.3 g/dL (3.5-5.7); Albumin/Globulin Ratio 1.5 (1.1-2.2); Alkaline Phosphatase 78 Units/L (34-104); Aspartate Amino Transferase 12 Units/L (13-39); BUN/Creatinine Ratio 26 (6-26); Bilirubin,Total 0.2 mg/dL (0.3-1.0); Blood Urea Nitrogen 19 mg/dL (6-20); Calcium 7.7 mg/dL (8.6-10.3); Carbon Dioxide 20 mEq/L (23-29); Chloride 110 mEq/L (98-107); Globulin 2.2 g/dL (2.4-3.5); Glucose 125 mg/dL (70-105); Iron 18 mcg/dL (50-170); Magnesium 1.6 mg/dL (1.6-2.6); Osmolality,Calculated 290 (280-300); Phosphorous 3.1 mg/dL (2.7-4.5); Potassium 3.6 mEq/L (3.5-5.1); Sodium 138 mEq/L (136-145); Total Protein 5.5 g/dL (6.4-8.9); Transferrin 258 mg/dL (203-362); eGFR For African Americans > 60 (> 60); eGFR For Non-African Americans > 60 (> 60)
[2021-07-02 07:21] LABS: Ferritin 16 ng/mL (10-120)
[2021-07-02] MEDS: levoFLOXacin 750 MG/150 ML 750 MG/150 ML BAG IVPB SCH (07:51)
[2021-07-02] MEDS: *HR* Buprenorphine HCl 8 MG TAB.SUBL SL SCH (07:52)
[2021-07-02] MEDS: Gabapentin 300 MG CAPSULE PO SCH ×4 (07:52→21:44)
[2021-07-02] MEDS: ARIPiprazole 5 MG TABLET PO SCH (07:53)
[2021-07-02] MEDS: Insulin LISPRO 300 UNITS/3 ML VIAL SUBQ SCH ×4 (07:53→21:45)
[2021-07-02] MEDS ORDERED: BuPROPion XL (24 HR) 150 MG TABLET PO SCH (09:00)
[2021-07-02] MEDS ORDERED: cefTRIAXone 1,000 MG in Water for inj. (sterile) 10 ML IVP SCH (09:00)
[2021-07-02 17:13] LABS: Adenovirus Not Detected (Not Detect); Bordetella Pertussis Not Detected (Not Detect); Chlamydophila pneumoniae Not Detected (Not Detect); Coronavirus 229E Not Detected (Not Detect); Coronavirus HKU1 Not Detected (Not Detect); Coronavirus NL63 Not Detected (Not Detect); Coronavirus OC43 Not Detected (Not Detect); Human Metapneumovirus Not Detected (Not Detect); Human Rhinovirus/Enterovirus Not Detected (Not Detect); Influenza A Subtype 2009 H1 Not Detected (Not Detect); Influenza B Not Detected (Not Detect); Mycoplasma pneumoniae Not Detected (Not Detect); Parainfluenza Virus 1 Not Detected (Not Detect); Parainfluenza Virus 2 Not Detected (Not Detect); Parainfluenza Virus 3 Not Detected (Not Detect); Parainfluenza Virus 4 Not Detected (Not Detect); Respiratory Syncytial Virus DETECTED (Not Detect); SARS-CoV-2 Not Detected (Not Detect)
[2021-07-03] MEDS: Insulin LISPRO 300 UNITS/3 ML VIAL SUBQ SCH ×4 (06:59→22:05)
[2021-07-03] MEDS: ARIPiprazole 5 MG TABLET PO SCH (07:41)
[2021-07-03] MEDS: BuPROPion XL (24 HR) 150 MG TABLET PO SCH (07:41)
[2021-07-03] MEDS: Gabapentin 300 MG CAPSULE PO SCH ×4 (07:41→22:02)
[2021-07-03] MEDS: *HR* Buprenorphine HCl 8 MG TAB.SUBL SL SCH (07:42)
[2021-07-03] MEDS: levoFLOXacin 750 MG/150 ML 750 MG/150 ML BAG IVPB SCH (07:42)
[2021-07-03 07:52] LABS: Basophils % 0.4 %; Eosinophils # 0.3 K/mcL (0.0-0.6); Eosinophils % 5.1 %; Hematocrit 21.5 % (35.3-44.9); Immature Granulocytes % 0.7 % (0-4); Lymphocytes # 2.8 K/mcL (0.6-4.6); Lymphocytes % 41.5 %; Mean Corpuscular HGB Conc 31.6 g/dL (31.6-35.5); Mean Corpuscular Hemoglobin 27.1 pg (28.0-33.3); Mean Corpuscular Volume 85.7 fL (83.0-100.0); Mean Platelet Volume 9.8 fL (9.4-12.4); Monocytes # 0.4 K/mcL (0.0-1.3); Monocytes % 6.1 %; Neutrophils # 3.1 K/mcL (1.6-8.9); Nucleated Red Blood Cells 0.4 /100 WBC (0); Platelet Count 294 K/mcL (140-400); Red Blood Count 2.51 M/mcL (3.82-4.97); Red Cell Distribution Width 15.9 % (11.5-14.5); Segmented Neutrophils % 46.2 %; White Blood Count 6.7 K/mcL (4.3-11.1)
[2021-07-03 07:56] LABS: Hemoglobin 6.8 g/dL (11.5-15.4)
[2021-07-03 08:07] LABS: BUN/Creatinine Ratio 13 (6-26); Blood Urea Nitrogen 10 mg/dL (6-20); Calcium 8.5 mg/dL (8.6-10.3); Carbon Dioxide 26 mEq/L (23-29); Chloride 108 mEq/L (98-107); Glucose 112 mg/dL (70-105); Magnesium 1.6 mg/dL (1.6-2.6); Osmolality,Calculated 294 (280-300); Potassium 3.3 mEq/L (3.5-5.1); Sodium 142 mEq/L (136-145); eGFR For African Americans > 60 (> 60); eGFR For Non-African Americans > 60 (> 60)
[2021-07-03 09:15] LABS: Platelet Estimate Normal (Normal); Reactive Lymphocytes Present (Not Present)
[2021-07-03] MEDS ORDERED: 0.9 % Sodium Chloride 250 ML IVC SCH (10:15)
[2021-07-03] MEDS: Pantoprazole 40 MG VIAL IVP SCH ×2 (11:42→16:52)
[2021-07-03 16:05] LABS: Hematocrit 19.2 % (35.3-44.9); Hemoglobin 6.2 g/dL (11.5-15.4)
[2021-07-03] MEDS ORDERED: SODIUM CHLORIDE/NAHCO3/KCL/PEG 4,000 ML SOLN.RECON PO ONE (17:00)
[2021-07-03 19:15] LABS: Hematocrit 25.8 % (35.3-44.9); Hemoglobin 8.4 g/dL (11.5-15.4)
[2021-07-03] MEDS: QUEtiapine Fumarate 300 MG TABLET PO SCH (22:02)
[2021-07-04 05:25] LABS: Basophils % 0.6 %; Eosinophils # 0.3 K/mcL (0.0-0.6); Eosinophils % 4.6 %; Hematocrit 22.9 % (35.3-44.9); Hemoglobin 7.5 g/dL (11.5-15.4); Immature Granulocytes % 0.7 % (0-4); Lymphocytes # 2.7 K/mcL (0.6-4.6); Lymphocytes % 36.7 %; Mean Corpuscular HGB Conc 32.8 g/dL (31.6-35.5); Mean Corpuscular Volume 85.4 fL (83.0-100.0); Mean Platelet Volume 9.5 fL (9.4-12.4); Monocytes # 0.5 K/mcL (0.0-1.3); Monocytes % 6.6 %; Neutrophils # 3.7 K/mcL (1.6-8.9); Nucleated Red Blood Cells 0.4 /100 WBC (0); Platelet Count 295 K/mcL (140-400); Red Blood Count 2.68 M/mcL (3.82-4.97); Red Cell Distribution Width 15.7 % (11.5-14.5); Segmented Neutrophils % 50.8 %; White Blood Count 7.2 K/mcL (4.3-11.1)
[2021-07-04 05:39] LABS: BUN/Creatinine Ratio 11 (6-26); Blood Urea Nitrogen 8 mg/dL (6-20); Calcium 8.1 mg/dL (8.6-10.3); Carbon Dioxide 25 mEq/L (23-29); Chloride 111 mEq/L (98-107); Glucose 109 mg/dL (70-105); Magnesium 1.4 mg/dL (1.6-2.6); Osmolality,Calculated 291 (280-300); Potassium 3.3 mEq/L (3.5-5.1); Sodium 141 mEq/L (136-145); eGFR For African Americans > 60 (> 60); eGFR For Non-African Americans > 60 (> 60)
[2021-07-04] MEDS: Pantoprazole 40 MG VIAL IVP SCH ×2 (05:42→16:31)
[2021-07-04] MEDS ORDERED: Potassium Chloride 20 MEQ, Lidocaine 1% 2 ML in 0.9 % Sodium Chloride 250 ML IVPB ONE (09:00)
[2021-07-04] MEDS: *HR* Buprenorphine HCl 8 MG TAB.SUBL SL SCH (10:10)
[2021-07-04] MEDS: BuPROPion XL (24 HR) 150 MG TABLET PO SCH (10:10)
[2021-07-04] MEDS: Gabapentin 300 MG CAPSULE PO SCH ×3 (10:11→16:33)
[2021-07-04] MEDS: ARIPiprazole 5 MG TABLET PO SCH (10:11)
[2021-07-04] MEDS: Insulin LISPRO 300 UNITS/3 ML VIAL SUBQ SCH ×3 (10:12→16:33)
[2021-07-04 12:34] LABS: Hematocrit 23.3 % (35.3-44.9); Hemoglobin 7.7 g/dL (11.5-15.4)
[2021-07-04 15:47] VITALS: BP 123/82; PULSE 87; TEMP 98.9; O2SAT 97
[2021-07-04] MEDS ORDERED: Magnesium Oxide 400 MG TABLET PO SCH (16:30)
[2021-07-04] MEDS ORDERED: Lidocaine -MPF 2% 5 ML VIAL SQ ONE (17:06)
[2021-07-04] MEDS ORDERED: *HR* Propofol 200 MG/20 ML VIAL IVP ONE (17:06)
[2021-07-04] MEDS ORDERED: *HR* Propofol 500 MG/50 ML BOTTLE IVP ONE (17:06)
== END 2021-07-04 17:07 | disposition home or self-care (01) | DRG 720 ==
LOC: EMEROOARM 13:11 → CDU 13:11 → SUATTDRO 23:13 → CDU 07-02 00:29 → 2ANU 07-02 05:56
PROVIDERS: ADMIT Internal Medicine; ATTEND Internal Medicine